=== PATIENT | female | born 1945 | race Caucasian/White ===

== ENCOUNTER 2016-03-29 13:27 | Emergency (ER) | payer MEDICARE, BC ==
[2012-10-20 06:30] VITALS: BMI 35.2
[~2016-03-29 13:27] MED LIST: BAYER CHEWABLE81 MG PO; FISH OIL 1,0001 CA1 PO; GLUCOPHAGE1000 MG PO; HYDROCHLOROTHIA25 MG PO; LEVOXYL75 MCG PO; LISINOPRIL2.5 MG PO; MOTRIN800 MG PO; NORCO 10/325 TA1 TA1 PO; PRAVACHOL40 MG PO; TOPROL XL100 MG PO; VITAMIN D2000 UNIT PO
[2016-03-29 14:39] LABS: BASOPHILS 0.3 % (0.0-2.0); HEMATOCRIT 44.4 % (36.0-48.0); HEMOGLOBIN 15.3 g/dL (12-16); IMMATURE GRANULOCYTES 0.1 % (0-5); LYMPHOCYTES 33.5 % (15-50); MCH 30.8 pg (26.0-34.0); MCHC 34.5 g/dL (31.0-37.0); MCV 89.3 fL (80.0-100.0); MEAN PLATELET VOLUME 10.9 fL (7.4-10.4); MONOCYTES 6.7 % (2-11); NEUTROPHILS 56.4 % (40-80); PLATELET COUNT 239 10x3/uL (130-400); RBC 4.97 10x6/uL (4.00-5.40); RDW 13.6 % (11.5-14.5); WBC 7.6 10x3/uL (4.8-10.8)
[2016-03-29 14:53] LABS: ALBUMIN 3.6 g/dL (3.4-5.0); ALKALINE PHOSPHATASE 51 U/L (46-116); ALT (SGPT) 30 U/L (10-68); CALC OSMOLALITY 283 mosm/kg (275-300); CALCIUM 9.8 mg/dL (8.5-10.1); CARBON DIOXIDE 31.4 mmol/L (21.0-32.0); CHLORIDE - SERUM 101 mmol/L (98-107); CREATININE - SERUM 0.7 mg/dL (0.6-1.3); GLUCOSE 149 mg/dL (74-106); POTASSIUM - SERUM 3.8 mmol/L (3.5-5.1); PROTEIN - SERUM 7.7 g/dL (6.4-8.2); SODIUM 141 mmol/L (136-145); UREA NITROGEN 12 mg/dL (7-18); eGFR NON AFRICAN AMERICAN 87 mL/min (90-120)
[2016-03-29 15:09] LABS: APPEARANCE CLEAR (CLEAR); BILIRUBIN NEGATIVE (NEGATIVE); COLOR YELLOW (YELLOW); GLUCOSE NEGATIVE (NEGATIVE); KETONE NEGATIVE (NEGATIVE); LEUKOCYTE ESTERASE 1+ (NEGATIVE); NITRITE NEGATIVE (NEGATIVE); PROTEIN NEGATIVE (NEGATIVE); UROBILINOGEN NORMAL (NORMAL)
[2016-03-29 15:11] LABS: BACTERIA FEW /hpf (NONE SEEN); EPITHELIAL CELLS 0-5 /hpf (0-5); RED CELLS - URINE 0-5 /hpf (0-5); WHITE CELLS - URINE 0-5 /hpf (0-5)
== END 2016-03-29 17:09 | disposition home or self-care (01) ==
LOC: D.ER 13:27
PROVIDERS: Family Medicine
DX: M62.838 Other muscle spasm (principal); I25.10 Atherosclerotic heart disease of native coronary artery without angina pectoris; I10 Essential (primary) hypertension; E78.00 Pure hypercholesterolemia, unspecified; E03.9 Hypothyroidism, unspecified; E11.9 Type 2 diabetes mellitus without complications

== ENCOUNTER → 2016-07-06 17:59 | Outpatient (CLI) | payer MEDICARE, BC ==
[2012-10-20 06:30] VITALS: BMI 35.2
== END | disposition home or self-care (01) ==
LOC: D.MAMMO 06-24 11:30
DX: Z12.31 Encounter for screening mammogram for malignant neoplasm of breast (principal)

== ENCOUNTER 2017-05-09 20:59 | Emergency (ER) | payer MEDICARE, BC ==
[2012-10-20 06:30] VITALS: BMI 35.2
== END 2017-05-09 21:40 | disposition home or self-care (01) ==
LOC: D.ER 20:59
DX: T78.40XA Allergy, unspecified, initial encounter (principal); X58.XXXA Exposure to other specified factors, initial encounter; R05 Cough; I10 Essential (primary) hypertension; E11.9 Type 2 diabetes mellitus without complications

== ENCOUNTER 2017-07-06 15:31 | Outpatient (CLI) | payer MEDICARE, BC ==
[2012-10-20 06:30] VITALS: BMI 35.2
== END 2017-07-06 15:32 | disposition home or self-care (01) ==
LOC: D.MAMMO 15:31
DX: Z12.31 Encounter for screening mammogram for malignant neoplasm of breast (principal)

== ENCOUNTER → 2018-04-06 13:54 | Outpatient (CLI) | payer MEDICARE, BC ==
[2012-10-20 06:30] VITALS: BMI 35.2
== END | disposition home or self-care (01) ==
LOC: D.MRI 10:00
DX: R47.01 Aphasia (principal)

== ENCOUNTER → 2018-04-08 15:22 | Outpatient (CLI) | payer MEDICARE, BC ==
[2012-10-20 06:30] VITALS: BMI 35.2
== END | disposition home or self-care (01) ==
LOC: D.CT 15:22
DX: R59.0 Localized enlarged lymph nodes (principal)

== ENCOUNTER 2018-05-20 15:13 | Emergency (ER) | payer MEDICARE, BC ==
[~2018-05-20] VITALS: Ht 157.5 cm; Wt 80.7 kg
[2018-05-20 15:18] VITALS: Ht 157.5 cm; Wt 80.7 kg
[2018-05-20] MEDS ORDERED: CLARITIN 10 MG10 MG PO (15:22)
[2018-05-20] MEDS ORDERED: SINGULAIR10 MG PO (15:22)
[2018-05-20 16:13] LABS: BASOPHILS 0.3 % (0-2); EOSINOPHILS 5.8 % (0-7); HEMATOCRIT 41.1 % (36.0-48.0); HEMOGLOBIN 14.5 g/dL (12-16); IMMATURE GRANULOCYTES 0.3 % (0-5); LYMPHOCYTES 31.3 % (15-50); MCH 30.6 pg (26.0-34.0); MCHC 35.3 g/dL (31.0-37.0); MCV 86.7 fL (80.0-100.0); MEAN PLATELET VOLUME 10.4 fL (7.4-10.4); MONOCYTES 7.9 % (2-11); NEUTROPHILS 54.4 % (40-80); PLATELET COUNT 249 10x3/uL (130-400); RBC 4.74 10x6/uL (4.00-5.40); RDW 13.4 % (11.5-14.5); WBC 7.2 10x3/uL (4.8-10.8)
[2018-05-20 16:35] LABS: ANION GAP 19.2 mmol/L (8-16); CALCIUM 9.4 mg/dL (8.5-10.1); CARBON DIOXIDE 22.9 mmol/L (21.0-32.0); CREATININE - SERUM 0.8 mg/dL (0.6-1.3); POTASSIUM - SERUM 3.1 mmol/L (3.5-5.1)
[2018-05-20] MEDS ORDERED: COZAAR25 MG PO (17:24)
[2018-05-20] MEDS ORDERED: QVAR REDIHALE10.6 G1 INH (17:25)
[2018-05-20 19:25] VITALS: BP 157/58
== END 2018-05-20 19:25 | disposition home or self-care (01) ==
LOC: D.ER 15:13
PROVIDERS: Family Medicine
DX: J45.901 Unspecified asthma with (acute) exacerbation (principal)

== ENCOUNTER → 2018-09-20 09:17 | Outpatient (CLI) | payer MEDICARE, BC ==
[2018-05-20 15:18] VITALS: BMI 35.2
[~2018-09-20 09:17] MED LIST changes: +CLARITIN 10 MG10 MG PO; +COZAAR25 MG PO; +QVAR REDIHALE10.6 G1 INH; +SINGULAIR10 MG PO
== END | disposition home or self-care (01) ==
LOC: D.MRI 09:17
PROVIDERS: ATTEND Orthopaedic Surgery
DX: M54.5 Low back pain (principal)

== ENCOUNTER 2019-01-27 07:08 | Day surgery (SDC) | payer MEDICARE, BC ==
[~2019-01-27] VITALS: Ht 157.5 cm; Wt 76.7 kg
[~2019-01-27 07:08] MED LIST changes: +CYANOCOBAL1000 MCG/4 SC; +VITAMIN D250000 UNIT PO
[2019-01-27 07:49] LABS: HEMATOCRIT 40.4 % (36.0-48.0); HEMOGLOBIN 13.7 g/dL (12-16); MCH 30.4 pg (26.0-34.0); MCHC 33.9 g/dL (31.0-37.0); MCV 89.8 fL (80.0-100.0); MEAN PLATELET VOLUME 10.3 fL (7.4-10.4); RBC 4.5 10x6/uL (4.00-5.40); RDW 13.7 % (11.5-14.5); WBC 7.3 10x3/uL (4.8-10.8)
[2019-01-27 08:33] LABS: ANION GAP 12.2 mmol/L (8-16); CALCIUM 9.4 mg/dL (8.5-10.1); CARBON DIOXIDE 27.2 mmol/L (21.0-32.0); CREATININE - SERUM 0.9 mg/dL (0.6-1.3); POTASSIUM - SERUM 3.4 mmol/L (3.5-5.1)
[2019-01-27 09:12] VITALS: BP 184/64; Ht 157.5 cm; Wt 76.7 kg
[2019-01-27] MEDS ORDERED: LYRICA50 MG PO (09:22)
[2019-01-27] MEDS ORDERED: VITAMIN B-12100 MCG PO (09:24)
--- NOTE | 2019-01-27 14:21 | NUR ---
1229-REC'D FROM RR. ALERT AND AWAKE. DENIES PAIN.VSS. DRESSING TO LOWER BACK CDI.CL IN EASY REACH. FRIEND AT BEDSIDE,
--- NOTE | 2019-01-27 14:22 | NUR ---
1245-FULL LIQUID TRAY TO ROOM. CONTINUE TO DENY PAIN. CL IN EASY REACH. FRIEND AT BEDSIDE.
--- NOTE | 2019-01-27 14:24 | NUR ---
1345-ASSISTED PT TO RESTROOM. AMBULATED WITH SLOW STEADY GAIT USING HER CANE. DENIED ANY PAIN UPON AMBULATION. WAS ABLE TO URINATE WITHOUT COMPLICATIONS.
--- NOTE | 2019-01-27 14:26 | NUR ---
1400-REMOVED IV FROM RIGHT ARM WITH CATH INTACT. DISPOSED INTO SHARPS,COVERED SITE WITH BANDAID. FRIEND AT BEDSIDE. CL IN EASY REACH
--- NOTE | 2019-01-27 14:28 | NUR ---
1415-PT DRESSED. DRESSING CDI. DENIES PAIN.VERY PLEASANT AND HAPPY WITH BEING ABLE TO AMBULATE BETTER WITH LESS PAIN SINCE PROCEDURE. REVIEWED POST OPERATIVE INSTRUCTIONS WITH PT. VERBALIZED UNDERSTANDING. ESCORTED OUT VIA W/C WITH FRIEND AWAITING TO DRIVE HOME.
--- NOTE | 2019-02-24 09:47 | OP ---
PATIENT NAME: TITO RYDER MEDICAL RECORD: [id number] :43 LOCATION:[facility] ADMISSION DATE: SURGEON: JOSE HICKEY MD DATE OF OPERATION: 01/27/2019 PREOPERATIVE DIAGNOSES: Left S1 radiculopathy secondary to lumbar spinal stenosis of L5-S1 left and left L5 radiculopathy secondary to left L5-S1 foraminal stenosis. SURGEON: Jose Hickey MD PROCEDURES: Lumbar laminotomy, medial facetectomy and foraminotomy at L5-S1 with METRx retractor. DESCRIPTION AND TECHNIQUE: After induction of general endotracheal anesthesia, the patient was rolled prone on a Xu frame. Lumbar spine was prepped and draped in usual sterile fashion. Fluoroscopic x-ray and a spinal needle localized the L5-S1 interspace on the left side. A stab incision was created with a #11 blade and series of dilators were used to advance a METRx retractor at the L5-S1 on the left. The level was confirmed with fluoroscopic x-ray. A microscope and a Midas Anup drill were used to perform laminotomy, medial facetectomy and foraminotomy at L5-S1 on the left. Hypertrophied ligamentum flavum was removed with Cloward rongeurs. Following this, the left L5 and S1 nerve roots were decompressed well. Meticulous hemostasis was maintained throughout the wound. The wound was irrigated with copious amounts of Ancef irrigant solution. The METRx retractor was removed. The fascia was closed with 2-0 Vicryl suture. Subdermal layer was closed with 3-0 Vicryl suture. Skin was closed with vannessa. A sterile dressing was applied to the wound. The patient was awakened in good condition, taken to recovery. All counts were reported as correct. Estimated blood loss was minimal. TRANSINT:[id number] Voice Confirmation ID: [id number] DOCUMENT ID: [id number] JOSE HICKEY MD at 0947 CC: [id number] DICTATION DATE: 02/24/19822 INFORMATION ANALYST: 02/24/19 0941 [facility] 01/27/19 [place] [address]
== END 2019-01-27 14:15 | disposition home or self-care (01) ==
LOC: D.OPS 07:08 → D.PAN 09:45 → D.OPS 09:45 → D.PAN 13:00 → D.OPS 14:15
PROVIDERS: Anesthesiology; ATTEND Neurological Surgery
DX: M51.16 Intervertebral disc disorders with radiculopathy, lumbar region (principal)

== ENCOUNTER → 2020-06-17 10:25 | Outpatient (CLI) | payer MEDICARE, BC ==
[2019-01-27 09:12] VITALS: BMI 31.0
[~2020-06-17 10:25] MED LIST changes: +LYRICA50 MG PO; +VITAMIN B-12100 MCG PO
== END | disposition home or self-care (01) ==
LOC: D.HCCECHO 10:25
PROVIDERS: ATTEND Internal Medicine Cardiovascular Disease
DX: I25.10 Atherosclerotic heart disease of native coronary artery without angina pectoris (principal)